=== PATIENT | male | born 1970 ===

== ENCOUNTER 2019-06-28 23:30 | Emergency (ER) | payer OTHER ==
[~2019-06-28] VITALS: Ht 172.7 cm; Wt 79.4 kg
[~2019-06-28 23:30] MED LIST: INSUASPI SC; INSULANPEN
[2019-06-29] MEDS ORDERED: Roxicodone5 MG PO (01:06)
== END 2019-06-29 01:24 | disposition home or self-care (01) ==
LOC: ER 23:30
DX: S89.91XA Unspecified injury of right lower leg, initial encounter (principal); X58.XXXA Exposure to other specified factors, initial encounter; Z91.010 Allergy to peanuts; Z91.048 Other nonmedicinal substance allergy status; E10.9 Type 1 diabetes mellitus without complications; F17.200 Nicotine dependence, unspecified, uncomplicated
CPT/HCPCS: 29515; 99283-25; A9270